=== PATIENT | male | born 1980 | race Two or more races ===

== ENCOUNTER 2020-10-15 08:53 | Emergency (ER) | payer MEDICAID ==
[~2020-10-15] VITALS: Ht 185.4 cm; Wt 107.0 kg
--- NOTE | 2020-10-15 09:38 | NUR ---
PA STALLWORTH IN ROOM, PATIENT ON BACTRIM SINCE 10/06 ABCESS STARTED 10/04 PATIENT DENIES INJECTING OR OTHER DAMAGE TO THIGH
[2020-10-15] MEDS ORDERED: LIDOcaine 1% W/epiNEPHrine 1:200,000 10ml vial IJ ONE (09:40)
[2020-10-15] MEDS ORDERED: LIDOcaine 1% w/epiNEPHrine 1:200,000 30ml vial IJ ONE (09:45)
[2020-10-15 10:28] VITALS: BP 106/55
== END 2020-10-15 10:32 | disposition home or self-care (01) ==
LOC: ER 08:55
DX: L02.416 Cutaneous abscess of left lower limb (principal)
CPT/HCPCS: 10060; 99282